=== PATIENT | female | born 1980 | race Caucasian/White ===

== ENCOUNTER 2017-06-20 19:58 | Emergency (ER) | payer BC ==
--- NOTE | 2017-06-20 20:56 | ED PDOC ---
Lower Extremity Pain/Injury Time Seen by Provider: 06/20/17 20:13 Chief Complaint (Nursing): Lower Extremity Problem/Injury Chief Complaint (Provider): Lower Extremity Problem/Injury History Per: Patient History/Exam Limitations: no limitations Onset/Duration Of Symptoms: Days (x2) Current Symptoms Are (Timing): Still Present Additional Complaint(s): Vanessa Yanez is a 36 year old female who presents to the emergency department with a complaint of left knee swelling ongoing for 2 days. Denied numbness, tingling, injury or trauma. Patient stated she WAS DIAGNOSED WITH superficial blood clot 1 week ago after having calf pain. Pt states calf pain started after she was sitting at work with legs crossed and leaning on garbage can. She also reported painful ambulation and pain when bending left knee. Pt has history of OA which she gets steroid injections intra-articular. PT states that last one was 2 months ago. Pt states she has had mild edema from OA in the past but not as severe as today. PMD: none provided Past Medical History Reviewed: Historical Data, Nursing Documentation, Vital Signs Vital Signs: Last Vital Signs Temp 98.6 F 06/20/17 20:11 Pulse 85 06/20/17 20:11 Resp 18 06/20/17 20:11 BP 142/91 H 06/20/17 20:11 Pulse Ox 97 06/20/17 20:11 - Medical History PMH: No Chronic Diseases Other PMH: varicose vein - Surgical History Surgical History: Denies: No Surg Hx Other surgeries: left knee - Family History Family History: States: Unknown Family Hx - Social History Current smoker - smoking cessation education provided: No Ex-Smoker (has not smoked in the last 12 months): No Alcohol: Social Drugs: Denies - Allergies Allergies/Adverse Reactions: Allergies Allergy/AdvReac Type Severity Reaction Status Date / Time No Known Allergies Allergy Verified 06/20/17 20:11 Review of Systems ROS Statement: Except As Marked, All Systems Reviewed And Found Negative Constitutional: Negative for: Fever, Chills Musculoskeletal: Positive for: Leg Pain (left knee). Negative for: Other ( injury or trauma) Neurological: Negative for: Numbness (or tingling) Physical Exam - Reviewed Nursing Documentation Reviewed: Yes Vital Signs Reviewed: Yes - Physical Exam Appears: Positive for: Well, Non-toxic, No Acute Distress Head Exam: Positive for: ATRAUMATIC, NORMAL INSPECTION, NORMOCEPHALIC Skin: Positive for: Normal Color (NO ERYTHEMA) Eye Exam: Positive for: Normal appearance ENT: Positive for: Normal ENT Inspection Neck: Positive for: Normal Respiratory: Negative for: Accessory Muscle Use, Respiratory Distress Extremity: Positive for: Swelling (Left knee ). Negative for: Normal ROM ( Decreasd flexion in left knee), Deformity Neurologic/Psych: Positive for: Alert (x3), Oriented - Laboratory Results Result Diagrams: 06/20/17 21:25 06/20/17 21:25 - ECG O2 Sat by Pulse Oximetry: 97 (RA) Pulse Ox Interpretation: Normal Medical Decision Making Medical Decision Making: Initial Impression: Left knee pain Initial Plan: US XR Labs Labs normal. XR normal. US pending. Endorsed to Mikala Randle PA-C at 0000. Scribe Attestation: Documented by Jaquelin Sanchez, acting as a scribe for Karma Isabel PA-C. Provider Scribe Attestation: All medical record entries made by the Scribe were at my direction and personally dictated by me. I have reviewed the chart and agree that the record accurately reflects my personal performance of the history, physical exam, medical decision making, and the department course for this patient. I have also personally directed, reviewed, and agree with the discharge instructions and disposition. Disposition - Clinical Impression Clinical Impression: Knee swelling - Patient ED Disposition Is Patient to be Admitted: Transfer of Care - Disposition Disposition: Transfer of Care Disposition Time: 23:41 Condition: STABLE Forms: [employer] (Y[place]i)
[2017-06-20 21:29] LABS: BASO % 0.6 % (0.0-2.0); EOS # 0.2 K/uL (0.0-0.7); EOS % 3.2 % (0.0-4.0); HEMATOCRIT 34.5 % (34.0-47.0); LYMPH # 1.7 K/uL (1.0-4.3); LYMPH % 25.1 % (20.0-40.0); MEAN CORPUSCULAR HEMOGLOBIN 29.1 pg (27.0-31.0); MEAN CORPUSCULAR HGB CONC 32.7 g/dL (33.0-37.0); MEAN PLATELET VOLUME 9.3 fl (7.2-11.7); MONO # 0.7 K/uL (0.0-0.8); MONO % 9.9 % (0.0-10.0); NEUT # 4.2 K/uL (1.8-7.0); NEUT % 61.2 % (50.0-75.0); WHITE BLOOD COUNT 6.8 K/uL (4.8-10.8)
[2017-06-20 21:41] LABS: ALB/GLOB RATIO 1.2 (1.0-2.1); ALKALINE PHOSPHATASE 44 U/L (38-126); ALT/SGPT 24 U/L (9-52); AST/SGOT 25 U/L (14-36); BILIRUBIN,TOTAL 0.7 mg/dl (0.2-1.3); BLOOD UREA NITROGEN 18 mg/dl (7-17); CALCIUM 9.4 mg/dL (8.4-10.2); CARBON DIOXIDE 23 mmol/L (22-30); CHLORIDE 104 mmol/L (98-107); GFR AFRICAN-AMERICAN > 60; GLUCOSE,RANDOM 95 mg/dL (65-105); SODIUM 138 mmol/l (132-148); TOTAL PROTEIN 7.8 G/DL (6.3-8.2)
--- NOTE | 2017-06-20 23:58 | ED PDOC ---
- Laboratory Results Result Diagrams: 06/20/17 21:25 06/20/17 21:25 - ECG O2 Sat by Pulse Oximetry: 97 (RA) Medical Decision Making Medical Decision Making: Case endorsed to communications writer from IBRAHIMA Isabel at 0000 pending US results and re-eval Vanessa Yanez is a 36 year old female who presents to the emergency department with a complaint of left knee swelling ongoing for 2 days. Denied numbness, tingling, injury or trauma. Patient stated she WAS DIAGNOSED WITH superficial blood clot 1 week ago after having calf pain. Pt states calf pain started after she was sitting at work with legs crossed and leaning on garbage can. She also reported painful ambulation and pain when bending left knee. Pt has history of OA which she gets steroid injections intra-articular. PT states that last one was 2 months ago. Pt states she has had mild edema from OA in the past but not as severe as today. PMD: none provided US FINDINGS: Deep veins: Unremarkable. No DVT in the visualized common femoral, femoral, proximal deep femoral or popliteal veins. The veins demonstrate normal color flow, are normally compressible, with normal phasic flow and/or augmentation response. Superficial veins: There is thrombosis of the lesser saphenous vein at its origin to the mid calf. Soft tissues: There is a complex fluid collection in the anterior aspect of the left knee, that measures approximately 7 x 4 cm. IMPRESSION: No deep venous thrombosis in the left lower extremity. Additional findings as described above. Disposition - Clinical Impression Clinical Impression: Knee swelling - POA Present On Arrival: None - Disposition Disposition: Routine/Home Disposition Time: 00:38 Condition: STABLE Prescriptions: Ibuprofen [Motrin] 600 mg PO Q6 #20 tab Instructions: Knee Pain (ED) Forms: [employer] (Micronesian), [facility] ED School/Work Excuse
[2017-06-21 00:26] VITALS: BP 133/83; PULSE 81; RESP 17; TEMP 98.2
[2017-06-21 00:39] VITALS: O2SAT 97
--- NOTE | 2017-06-21 10:45 | US ---
HISTORY: hx of superical thrombosis, knee edema . PRIORS: None. FINDINGS: 2-D, color and duplex Doppler analysis of the lower extremity venous circulation using routine protocol from the femoral veins through the popliteal veins. Venous compressibility: Normal. Flow and augmentation patterns: Normal. Visualized veins upper third of calf: Normal. Thompson cyst: None. IMPRESSION: No sonographic or Doppler evidence for DVT in left lower extremity. Segmental Superficial thrombophlebitis documented.
--- NOTE | 2017-06-21 11:12 | RAD ---
PROCEDURE: Left Knee Radiographs. HISTORY: Pain. COMPARISON: None. FINDINGS: BONES: Normal. No fracture. JOINTS: Marginal osteophytosis seen along the medial and lateral as well as patellofemoral compartments. JOINT EFFUSION: Small to moderate-sized joint effusion. OTHER FINDINGS: None. IMPRESSION: No evidence of acute displaced fracture nor dislocation. Tricompartmental degenerative osteophytes. Small to moderate-sized joint effusion. Consider followup MRI left knee evaluation if further evaluation is necessary
== END 2017-06-21 00:20 | disposition home or self-care (01) ==
LOC: H.ER 19:58
DX: M79.89 Other specified soft tissue disorders (principal)